=== PATIENT | female | born 1980 | race Caucasian/White ===

== ENCOUNTER 2017-09-02 08:00 | Outpatient (CLI) | payer BC | END 2017-09-02 08:01 | disposition home or self-care (01) | LOC: LAB.R 08:00 | PROVIDERS: ATTEND Obstetrics & Gynecology | DX: Z11.3 Encounter for screening for infections with a predominantly sexual mode of transmission (principal) | CPT/HCPCS: 87491; 87591 ==

== ENCOUNTER 2021-01-12 17:37 | Emergency (ER) | payer BC ==
[2021-01-12] MEDS ORDERED: BUFFERED LIDOCAINE 10 ML SYRINGE SUBQ STA (18:05)
--- NOTE | 2021-01-12 18:28 | ED Physician Documentation ---
History of Present Illness - Stated complaint Stated Complaint: FEMALE - Chief complaint Chief Complaint: General - Additonal information Additional information: 40-year-old female presents to the emergency department for 3 days of right l abial swelling. She has a history of previous Bartholin gland cyst/infection and this is similar to others. She typically gets them when she has a Crohn's flare and she developed a Crohn's flare about a week ago. She is currently on prednisone as well as mesalamine. She reports that the flare is improving but now she has developed the cyst. It is becoming increasingly larger and more painful to sit. No fevers. Currently on her menstrual cycle denies possibility of . Review of Systems Constitutional: reports: Reviewed and negative Eyes: reports: Reviewed and negative Ears: reports: Reviewed and negative Nose: reports: Reviewed and negative Throat: reports: Reviewed and negative Cardiac: reports: Reviewed and negative Respiratory: reports: Reviewed and negative GI: reports: Abdominal Pain, Bloody / black stool : reports: Other (Right Bartholin gland cyst). denies: Dysuria, Frequency Skin: reports: Reviewed and negative Musculoskeletal: reports: Reviewed and negative Neurologic: reports: Generalized weakness PD PAST MEDICAL HISTORY - Present Medications Home Medications: Ambulatory Orders Medication Instructions Recorded Confirmed HYDROcod/ACETAM 5/325 [[place] 5/325] 1 - 2 tablet PO Q6H PRN #10 tablet 01/12/21 Sulfamethox/Trimeth 800/160 1 each PO BID #14 tablet 01/12/21 [Bactrim Ds 800/160] - Allergies Allergies/Adverse Reactions: Allergies Allergy/AdvReac Type Severity Reaction Status Date / Time No Known Drug Allergies Allergy Verified 01/12/21 17:47 - Social History Smoking Status: Never smoker PD ED PE EXPANDED - General General: Alert, No acute distress - Cardiac Cardiac: Regular Rate, Radial strong equal, Pedal strong equal, Cap refill < 2 sec. No: Murmur Present - Respiratory Respiratory: Clear to ausultation jaswinder. No: Distress, Labored - Female Female : Other (2.5 x 4 cm right Bartholin gland cyst palpable fluctuance without drainage no erythema.) Results - Vitals Vitals: Vital Signs - 24 hr 01/12/21 17:40 Temperature 36.2 C L Heart Rate 63 Respiratory 14 Rate Blood Pressure 141/78 H O2 Saturation 100 Oxygen O2 Source Room air Procedures - Abscess I&D (location) right labia majora Preparation: Chlorhexadine Incision: Incised with scalpel, Purulent drainage, Loculations broken, Other (through and through tubin placed) Other: Pt tolerated well, Antibiotic prescribed PD MEDICAL DECISION MAKING - ED course Complexity details: re-evaluated patient, considered differential, d/w patient ED course: 40-year-old female presents emergency department with 3 days of right labial swelling consistent with a Bartholin gland abscess. She has had these 3 times in the past and always with her Crohn's flares. She is currently on prednisone and mesalamine to treat that and reports that that flare is improving. The abscess was incised and drained at the bedside with a large amount of purulent fluid draining. A through and through catheter was placed. Patient will be started on a 7-day course of Bactrim. Advised to do sitz bath's twice daily and to floss the tubing for at least 3 to 4 days. She will return to the emergency department her primary care doctor or an urgent care to have the tubing removed. Emergent return precautions were discussed for worsening infection. Departure - Departure Disposition: 01 Home, Self Care Clinical Impression: Bartholin's gland abscess Condition: Stable Record reviewed to determine appropriate education?: Yes Prescriptions: Sulfamethox/Trimeth 800/160 [Bactrim Ds 800/160] 1 each PO BID #14 tablet HYDROcod/ACETAM 5/325 [[place] 5/325] 1 - 2 tablet PO Q6H PRN #10 tablet PRN Reason: Pain Comments: Meg Green glad that you are feeling better. We were able to drain your Bartho michael abscess. The tubing that was placed should be flossed 2-3 times daily. You can shower normally but I also encourage you to sit in a warm sitz bath once or twice daily. Lets have you fill the prescription for the Bactrim and begin taking twice daily for the next 7 days. I would like this to being removed in about 3 days time. This can be done at any urgent care the emergency department or through your primary care office. If you feel that the abscess is worsening or not improving despite the drainage here in the ER please return to the emergency department. I have also prescribed a limited amount of hydrocodone or [place] for pain control. Use this very sparingly it will cause constipation and make you unsafe to drive
[2021-01-12] MEDS ORDERED: SULFAMETH/TRIMETH DS 800/160 MG TABLET PO STA (18:30)
[2021-01-12 18:45] VITALS: BP 124/83
== END 2021-01-12 18:46 | disposition home or self-care (01) ==
LOC: ED 17:37
DX: N75.1 Abscess of Bartholin's gland (principal)
CPT/HCPCS: 56420; 99282; 99283; A9270

== ENCOUNTER 2022-03-20 11:17 | Emergency (ER) | payer BC, OTHER ==
[2022-03-20 11:31] VITALS: BP 111/61
[2022-03-20] MEDS ORDERED: lidocaine 1% 20 ML MDV SUBQ ONE (11:59)
--- NOTE | 2022-03-20 11:59 | ED Physician Documentation ---
History of Present Illness - Stated complaint Stated Complaint: FEMALE - Chief complaint Chief Complaint: Wound - Additonal information Additional information: 41-year-old female presents emergency department for concern of a return of her Bartholin gland cyst/abscess infection. She is seen by me for this in December 2020. At that time the cyst was drained and she did have through and through tubing placed. It resolved after the tubing was removed she did require short course of antibiotics. Patient is scheduled to see an OB in follow-up next week. No fevers. This gland and swelling began on her right side again about a week ago. No fevers Review of Systems Constitutional: reports: Reviewed and negative Cardiac: reports: Reviewed and negative Respiratory: reports: Reviewed and negative GI: reports: Reviewed and negative : reports: Other (Right labial swelling) Skin: reports: Reviewed and negative Musculoskeletal: reports: Reviewed and negative PD PAST MEDICAL HISTORY - Present Medications Home Medications: Ambulatory Orders Medication Instructions Recorded Confirmed Sulfamethox/Trimeth 800/160 1 each PO BID #14 tablet 03/20/22 [Bactrim Ds 800/160] oxyCODONE [Roxicodone] 5 mg PO TID PRN #10 tablet 03/20/22 - Allergies Allergies/Adverse Reactions: Allergies Allergy/AdvReac Type Severity Reaction Status Date / Time No Known Drug Allergies Allergy Verified 03/20/22 11:29 - Social History Smoking Status: Never smoker Results - Vitals Vitals: Vital Signs - 24 hr 03/20/22 11:29 Temperature 36.8 C Heart Rate 65 Respiratory 18 Rate Blood Pressure 111/61 O2 Saturation 100 Oxygen O2 Source Room air Procedures - Abscess I&D (location) right bartholin gland abscess Preparation: Betadine Incision: Incised with scalpel, Purulent drainage, Loculations broken, Irrigated, Packed (Through and through tubing) Other: Pt tolerated well, Dressing applied, Antibiotic prescribed PD MEDICAL DECISION MAKING - ED course Complexity details: considered differential, d/w patient ED course: 41-year-old female return to the emergency department for evaluation of a right Bartholin gland abscess. She had similar in December 2020 in the same area. I was able to adequately drain the abscess and through and through tubing was placed into the right labia. She will be started on Bactrim and she does have follow- up scheduled next week with OB. I have advised sitz bath's Tylenol ibuprofen for pain and a very limited amount of oxycodone for severe discomfort. Emergent return precautions otherwise discussed. I am prescribing a short course of short-acting opioid pain medication for this patient. I have reviewed the patients IDENTITY MANAGEMENT CONSULTANT and no concerning findings were noted. I have discussed that the opioids are for short term therapy only, and will not be refilled from the ED. Departure - Departure Disposition: 01 Home, Self Care Clinical Impression: Bartholin's gland abscess Condition: Stable Record reviewed to determine appropriate education?: Yes Prescriptions: Sulfamethox/Trimeth 800/160 [Bactrim Ds 800/160] 1 each PO BID #14 tablet oxyCODONE [Roxicodone] 5 mg PO TID PRN #10 tablet PRN Reason: Pain Comments: Meg dow did have a return of your right Bartholin gland abscess. The incision today is a little larger in order to accommodate the scar tissue. However we did again place that through and through tubing. It should be removed in 7 to 10 days. I would like you to do sitz bath's once or twice daily. Please fill the prescr iption for the antibiotics. In general I want you to take Tylenol and ibuprofen for discomfort but for severe pain I have prescribed a limited amount of oxycodone. Please return to the ER for worsening symptoms, fevers or uncontrolled pain. I am prescribing a short course of narcotic pain medication for you. These are potentially dangerous and addictive medications that should be used carefully. These medications may constipate you. Take an sren-aag-udqliuj stool softener (docusate) twice daily with plenty of water while taking these medications. If you go 24 hours without a bowel movement, take gfhy-svw-oookwiw miralax, per package instructions. Do not drink or drive while taking these medications. If you received narcotic or sedating medications while in the emergency department, do not drive for 24 hours. Store this medication in a safe, secure place and out of reach of children. It is a violation of federal law to give or sell this medication to another person or to use in a manner other than prescribed. The ED will not refill narcotic prescriptions, including prescriptions lost or stolen. To dispose of unwanted medications: 1. [facility] at [address] in [place] has a medication drop box. They accept prescription medications (in pill form) Saturday through Saturday 9:00 a.m. to 5:00 p.m. 2. The [facility] accepts prescription medications (in pill form only) for disposal year round. Call for more information. 3. Contact the [facility] for the next [facility] sponsored prescription drug collection event. , [phone], or x7310; Note that many narcotic pain relievers also contain Tylenol/acetaminophen. Please ensure that your total dose of acetaminophen from all sources does not exceed 3 g (3000 mg) per day.
== END 2022-03-20 13:26 | disposition home or self-care (01) ==
LOC: ED 11:17
DX: N75.0 Cyst of Bartholin's gland (principal)
CPT/HCPCS: 56420

== ENCOUNTER 2022-03-21 10:24 | Emergency (ER) | payer OTHER ==
--- NOTE | 2022-03-21 13:09 | ED Physician Documentation ---
History of Present Illness - Stated complaint Stated Complaint: CYST CHECK - Chief complaint Chief Complaint: Wound - History obtained from History obtained from: Patient - Additonal information Additional information: Patient returns to the emergency department for chief complaint of "it feels like there is another abscess". Patient states that she was seen yesterday for a Bartholin gland abscess I&D and that she feels like the pain is worse and that there is still a fullness in the area. Patient is tried sitz bath's and she has been taking the antibiotics that she was prescribed. She also has been taking pain medication. She states the oxycodone is not helping and that when she felt down there, and she feels as though there is a "ball" in her right labia. She has not had any drainage. No other complaints at this time. Review of Systems Ten Systems: 10 systems reviewed and negative Constitutional: reports: Reviewed and negative Eyes: reports: Reviewed and negative Ears: reports: Reviewed and negative Nose: reports: Reviewed and negative Throat: reports: Reviewed and negative Cardiac: reports: Reviewed and negative Respiratory: reports: Reviewed and negative GI: reports: Reviewed and negative : reports: Other (Labial mass) Skin: reports: Reviewed and negative Musculoskeletal: reports: Reviewed and negative Neurologic: reports: Reviewed and negative Psychiatric: reports: Reviewed and negative Endocrine: reports: Reviewed and negative Immunocompromised: reports: Reviewed and negative PD PAST MEDICAL HISTORY - Present Medications Home Medications: Ambulatory Orders Medication Instructions Recorded Confirmed Sulfamethox/Trimeth 800/160 1 each PO BID #14 tablet 03/20/22 03/21/22 [Bactrim Ds 800/160] oxyCODONE [Roxicodone] 5 mg PO TID PRN #10 tablet 03/20/22 03/21/22 Oxycodone HCl/Acetaminophen 1 - 2 each PO Q6H PRN #14 tablet 03/21/22 [Percocet 5-325 mg Tablet] - Allergies Allergies/Adverse Reactions: Allergies Allergy/AdvReac Type Severity Reaction Status Date / Time No Known Drug Allergies Allergy Verified 03/21/22 10:41 - Social History Smoking Status: Never smoker PD ED PE NORMAL - Vitals Vital signs reviewed: Yes - General General: Alert and oriented X 3, No acute distress, Well developed/nourished - HEENT HEENT: Atraumatic, PERRL, EOMI, Moist mucous membranes - Neck Neck: Supple, no meningeal sign - Respiratory Respiratory: No respiratory distress - Female Female : Other (Palpable fluctuant mass patient's right labia. Fresh I&D site from yesterday is noted with a through and through catheter tied in place. Incision site from yesterday is sealed and nondraining.) - Derm Derm: Warm and dry - Extremities Extremities: No deformity - Neuro Neuro: Alert and oriented X 3 - Psych Psych: Normal mood, Normal affect Results - Vitals Vitals: Vital Signs - 24 hr 03/21/22 03/21/22 10:42 13:18 Temperature 36.1 C L Heart Rate 64 55 L Respiratory 18 18 Rate Blood Pressure 117/66 109/62 O2 Saturation 99 100 Oxygen O2 Source Room air Procedures - Abscess I&D (location) Right Bartholin gland abscess Preparation: Lidocaine 1% Incision: Incised with scalpel, Purulent drainage (5 cc, foul-smelling), Irrigated, Packed (Word catheter placed) Other: Pt tolerated well PD MEDICAL DECISION MAKING - ED course Complexity details: considered differential, d/w patient, d/w family ED course: The patient on examination clearly still had an abscess, and I did I&D this, as above. I chose a more medial site, as this seemed to be the apex of the remaining cavity. Approximately 5 cc of foul-smelling, purulent material did come shooting out upon incision. Area was thoroughly irrigated until clear effluent. I have discussed with the patient home management of the symptoms that have prescribed a little more pain medication for her. She is already on antibiotics and can continue these at home. We have discussed that the Word catheter will follow so. We have discussed the usual indications for return. Departure - Departure Disposition: 01 Home, Self Care Clinical Impression: Bartholin's gland abscess Condition: Stable Instructions: ED Bartholins Cyst IandD Prescriptions: Oxycodone HCl/Acetaminophen [Percocet 5-325 mg Tablet] 1 - 2 each PO Q6H PRN #14 tablet PRN Reason: pain Comments: Please continue your antibiotics. Your extra pain medication has been electronically transmitted to [facility]. You may pick this up later today. Discharge Date/Time: 03/21/22 13:38
[2022-03-21 13:18] VITALS: BP 109/62
== END 2022-03-21 13:38 | disposition home or self-care (01) ==
LOC: ED 10:24
DX: N75.1 Abscess of Bartholin's gland (principal)
CPT/HCPCS: 56420; 99282

== ENCOUNTER 2023-05-18 15:43 | Inpatient (IN) | payer OTHER ==
[~2023-05-18 15:43] MED LIST: LACTATED RINGERS 1,000 ML IV ONE
[2023-05-18 16:55] LABS: BASOPHILS # (AUTO) 0.1 10^3/uL (0.0-0.1); BASOPHILS % (AUTO) 0.5 %; EOSINOPHILS % (AUTO) 0.2 %; HCT - HEMATOCRIT 39.3 % (37.0-47.0); HGB - HEMOGLOBIN 13.1 g/dL (12.0-16.0); LYMPHOCYTES # (AUTO) 0.8 10^3/uL (1.5-3.5); LYMPHOCYTES % (AUTO) 4.7 %; MEAN CORPUSCULAR HEMOGLOBIN 30.5 pg (27.0-31.0); MEAN CORPUSCULAR HGB CONC 33.3 g/dL (32.0-36.0); MEAN CORPUSCULAR VOLUME 91.4 fL (81.0-99.0); MEAN PLATELET VOLUME 9.2 fL (7.9-10.8); MONOCYTES # (AUTO) 0.9 10^3/uL (0.0-1.0); NEUTROPHILS # (AUTO) 15.6 10^3/uL (1.5-6.6); NEUTROPHILS % (AUTO) 89.1 %; PLT - PLATELET COUNT 288 10^3/uL (130-450); RED CELL DISTRIBUTION WIDTH 12.4 % (12.0-15.0); WHITE BLOOD COUNT 17.6 x10^3/uL (4.8-10.8)
[2023-05-18 17:06] LABS: ALBUMIN 4.1 g/dL (3.2-5.5); ALBUMIN/GLOBULIN RATIO 1.4 (1.0-2.2); BILIRUBIN,TOTAL 0.4 mg/dL (0.2-1.0); CALCIUM 9.3 mg/dL (8.5-10.3); CREATININE 0.8 mg/dL (0.6-1.3); POTASSIUM 4.2 mmol/L (3.5-4.5)
[2023-05-18] MEDS ORDERED: HYDROmorphone 1 MG/ML CARPUJECT IVP STA ×2 (17:23→21:18)
[2023-05-18] MEDS ORDERED: ONDANSETRON 4 MG/2 ML VIAL IVP STA (17:23)
[2023-05-18] MEDS ORDERED: SODIUM CHLORIDE 0.9% 1,000 ML IV STA (17:23)
--- NOTE | 2023-05-18 17:25 | ED Physician Documentation ---
History of Present Illness - Stated complaint Stated Complaint: RT ABD PX - Chief complaint Chief Complaint: Abd Pain - Additonal information Additional information: 42-year-old female presents emergency department for evaluation of acute onset right lower quadrant abdominal pain. [facility] working [facility] [employer] when she developed the sudden pain. She immediately went home vomiting [address] there[address] At home she took an oxycodone and then got a ride to the ER. The pain has resolved somewhat with the oxycodone. Reports she is currently on her menstrual cycle. No history of similar. No history of ovarian cyst or torsion. pmh hx most significant for Crohn's disorder. Not currently medicated Review of Systems Constitutional: reports: Reviewed and negative GI: reports: Abdominal Pain, Nausea, Vomiting. denies: Constipation, Diarrhea : reports: Reviewed and negative Skin: reports: Reviewed and negative Musculoskeletal: reports: Reviewed and negative PD PAST MEDICAL HISTORY - Past Medical History Cardiovascular: None Respiratory: None Neuro: None Endocrine/Autoimmune: None GI: Ulcerative colitis OPERATIONS/DISPATCH: None : None HEENT: None Psych: None Musculoskeletal: None Derm: None - Present Medications Home Medications: Ambulatory Orders Medication Instructions Recorded Confirmed oxyCODONE [Roxicodone] 5 mg PO ONCE 05/18/23 - Allergies Allergies/Adverse Reactions: Allergies Allergy/AdvReac Type Severity Reaction Status Date / Time No Known Drug Allergies Allergy Verified 05/18/23 15:54 - Social History Does the pt smoke?: No Smoking Status: Never smoker Does the pt drink ETOH?: No Does the pt have substance abuse?: No - Immunizations Immunizations are current?: Yes PD ED PE NORMAL - General General: Alert and oriented X 3, No acute distress, Well developed/nourished - HEENT HEENT: Atraumatic - Neck Neck: Supple, no meningeal sign - Cardiac Cardiac: RRR, No murmur - Respiratory Respiratory: No respiratory distress - Abdomen Abdomen: Normal bowel sounds, Soft, Non tender (Exquisite focal tenderness in the right lower quadrant. No flank or CVA tenderness noted.) - Back Back: No CVA TTP - Derm Derm: Warm and dry - Extremities Extremities: No deformity - Neuro Neuro: Alert and oriented X 3, desulphuring operator 2-12 intact Eye Opening: Spontaneous Motor: Obeys Commands Verbal: Oriented GCS Score: 15 Results - Vitals Vitals: Vital Signs - 24 hr 05/18/23 05/18/23 05/18/23 15:52 18:02 21:11 Temperature 37 C Heart Rate 65 62 64 Respiratory 16 15 15 Rate Blood Pressure 113/58 L 118/59 L 141/72 H O2 Saturation 100 100 100 Oxygen O2 Source Room air - Labs Labs: Laboratory Tests 05/18/23 05/18/23 05/18/23 16:49 16:49 16:49 WBC 17.6 H RBC 4.30 Hgb 13.1 Hct 39.3 MCV 91.4 MCH 30.5 MCHC 33.3 RDW 12.4 Plt Count 288 MPV 9.2 Neut # (Auto) 15.6 H Lymph # (Auto) 0.8 L [place] # (Auto) 0.9 Eos # (Auto) 0.0 Baso # (Auto) 0.1 Absolute Nucleated RBC 0.00 Nucleated RBC % 0.0 Sodium 136 Potassium 4.2 Chloride 106 Carbon Dioxide 27 Anion Gap 3.0 L BUN 13 Creatinine 0.8 Estimated GFR (MDRD) 78 L Glucose 115 H Calcium 9.3 Total Bilirubin 0.4 AST 13 ALT 12 Alkaline Phosphatase 75 Total Protein 7.0 Albumin 4.1 Globulin 2.9 Albumin/Globulin Ratio 1.4 Lipase 16 Serum HCG, Qual NEGATIVE Urine Color Urine Clarity Urine pH Ur Specific [place] Urine Protein Urine Glucose (UA) Urine Ketones Urine Occult Blood Urine Nitrite Urine Bilirubin Urine Urobilinogen Ur Leukocyte Esterase Urine RBC Urine WBC Ur Squamous Epith Cells Urine Bacteria Ur Microscopic Review Urine Culture Comments 05/18/23 19:22 WBC RBC Hgb Hct MCV MCH MCHC RDW Plt Count MPV Neut # (Auto) Lymph # (Auto) [place] # (Auto) Eos # (Auto) Baso # (Auto) Absolute Nucleated RBC Nucleated RBC % Sodium Potassium Chloride Carbon Dioxide Anion Gap BUN Creatinine Estimated GFR (MDRD) Glucose Calcium Total Bilirubin AST ALT Alkaline Phosphatase Total Protein Albumin Globulin Albumin/Globulin Ratio Lipase Serum HCG, Qual Urine Color YELLOW Urine Clarity CLEAR Urine pH 5.0 Ur Specific [place] 1.015 Urine Protein NEGATIVE Urine Glucose (UA) NEGATIVE Urine Ketones NEGATIVE Urine Occult Blood SMALL H Urine Nitrite NEGATIVE Urine Bilirubin NEGATIVE Urine Urobilinogen 0.2 (NORMAL) Ur Leukocyte Esterase NEGATIVE Urine RBC 0-5 Urine WBC 0-3 Ur Squamous Epith Cells RARE Squamous Urine Bacteria None Seen Ur Microscopic Review INDICATED Urine Culture Comments NOT INDICATED - Rads (name of study) CT abd w Relevant Findings:: Final report received (Cystic-appearing right adnexal mass measuring 8.6 cm. Few indeterminate liver lesions present, too small to characterize. Nonemergent MRI of the liver without contrast could be helpful.) pelvic US Relevant Findings:: Final report received (complex foci of echogenicity within the right ovary/adnexal region suggestive of complex cyst) PD Medical Decision Making - ED course Complexity details: reviewed results, re-evaluated patient, considered differential, d/w patient ED course: 42-year-old female with no pertinent past surgical history presents the emergency department for the development of acute nonradiating right lower quadrant abdominal pain. It began suddenly and was associated with violent vomiting. No history of similar. Denies urinary symptoms. Patient is currently on her menstrual cycle. On presentation to the emergency department she was alert and well-appearing. She was afebrile without hypotension or tachycardia. No hypoxia on room air. Abdominal exam revealed very tender right lower quadrant of the abdomen with some mild rebound. I did obtain CBC and electrolytes as well as urinalysis. She does have a white count of 17,000. No anemia. Electrolytes without acute worrisome derangement. She is not . I suspect the leukocytosis to be stress marginalization. I initially gave the patient a liter of IV fluids, Zofran for nausea and Dilaudid IV. On reevaluation her pain is markedly better though she remains tender with deeper palpation. Subsequently a CT of the abdomen was ordered on presentation to evaluate for acute appendixy versus renal colic, vs ovarian mass. Unfortunately it showed a large cystic-appearing right adnexal mass measuring 8.6 cm. Given this finding I immediately ordered a pelvic ultrasound to rule out torsion and spoke on the phone with Dr. Cazares PUTTY GLAZER on-call. She promptly evaluated the patient at the bedside and personally reviewed the ultrasound images. at this time, she tentatively plans to take the pt to OR for further evaluation fo the right adnexal mass, pending the formal radiology read, though the technologist indicates that this is a complex right adnex mass/cystic lesion. No obvious torsion, flow was seen. However given the patient's persistent pain, there is concern for intermittent torsion. Dr. Cazares plans to take the pt to OR for evaluation of adnexal mass and possible intermittent torsion Departure - Departure Disposition: ED Transfer to [facility] Clinical Impression: Adnexal mass, RLQ abdominal pain Condition: Stable Record reviewed to determine appropriate education?: Yes Forms: PCP List
[2023-05-18 17:56] LABS: HCG,QUALITATIVE BLOOD NEGATIVE
[2023-05-18] MEDS ORDERED: iohexoL-300 100 ML VIAL ONE (18:44)
[2023-05-18] MEDS ORDERED: iohexoL-300 100 ML VIAL IVP ONE (19:03)
--- NOTE | 2023-05-18 19:19 | CT Report ---
PROCEDURE: ABDOMEN/PELVIS W INDICATIONS: RLQ abd pain CONTRAST: 100ml Omnipaque 300 TECHNIQUE: After the administration of intravenous contrast, 5 mm thick sections acquired from the diaphragms to the symphysis. 5 mm thick coronal and sagittal reformats were acquired. For radiation dose reducti on, the following was used: automated exposure control, adjustment of mA and/or kV according to jaleesa ent size. COMPARISON: None FINDINGS: Visualized lung bases: No pleural effusion. Liver and biliary tree: Few small hepatic hypodensities present, too small to characterize/indetermin ate. For example at the posterior right lobe of the liver (/). No biliary ductal dilation demonstr ated. Gallbladder: No radiopaque cholelithiasis. Spleen: Unremarkable. Pancreas: Unremarkable. Adrenal glands: Unremarkable. Kidneys and ureters: No hydronephrosis. Gastrointestinal tract: No bowel obstruction. No evidence of acute appendicitis. Peritoneal cavity: No free air or free fluid. Bladder: Unremarkable. Pelvic organs: Heterogeneous predominantly cystic appearing mass present at the right adnexa, approxi mately 8.6 x 6.0 cm measured in the axial plane. The uterus is heterogeneous in attenuation, nonspeci fic. Vasculature: No abdominal aortic aneurysm. Lymph nodes: No highly suspicious lymph nodes visualized. Musculoskeletal: Degenerative change of the spine. IMPRESSION: 1. Heterogeneous primarily cystic appearing right adnexal mass, 8.6 cm. Presence of adnexal mass plac es the patient at increased risk for ovarian/adnexal torsion. 2. Heterogeneous enhancement of the uterus, nonspecific. Correlation with recent / status may be helpful. 3. Gynecology consultation may be helpful to direct further management including additional imaging, if desired. Uterus and ovaries are not well evaluated by CT. 4. Few indeterminate liver lesions present, too small to characterize. Attention on follow-up is tay mmended. Nonemergent MRI of the liver without with contrast might be helpful for evaluation if clinic ally indicated. Reviewed by: Javier Osborn MD on 05/18/2023 7:18 PM PDT Approved by: Javier Osborn MD on 05/18/2023 7:18 PM PDT Station ID: [id number]
[2023-05-18 19:36] LABS: BILIRUBIN,URINE NEGATIVE (NEGATIVE); GLUCOSE, URINE (UA) NEGATIVE (NEGATIVE); KETONES,URINE (UA) NEGATIVE (NEGATIVE); LEUKOCYTE ESTERASE, URINE NEGATIVE (NEGATIVE); NITRITE,URINE NEGATIVE (NEGATIVE); OCCULT BLOOD,URINE SMALL (NEGATIVE); PROTEIN,URINE NEGATIVE (NEGATIVE); UROBILINOGEN,URINE 0.2 (NORMAL) E.U./dL (NORMAL)
[2023-05-18 19:37] LABS: CLARITY,URINE CLEAR (CLEAR)
[2023-05-18 19:45] LABS: BACTERIA,URINE None Seen /HPF (None Seen); RBC,URINE 0-5 /HPF (0-5); SQUAMOUS EPITHELIAL CELL,UR RARE Squamous (<= Few); WBC,URINE 0-3 /HPF (0-5)
--- NOTE | 2023-05-18 21:22 | HISTORY & PHYSICAL EXAMINATION ---
Chief Complaint - Chief Complaint Chief Complaint: Acute onset abdominal pain History of Present Illness - History of Present Illness HPI Comment/Other: Patient is a 42-year-old who presented to the emergency department with acute onset of right lower quadrant pain. [place] [employer] and stated that pain started very suddenly. She called her who then drove her to the emergency department. Pain has been consistent since that time. She has required pain medication and redosing of pain medication when it wears off. She had several episodes of vomiting with the onset of pain. Patient denies fevers and chills. She denies vaginal discharge. Patient has a history of irregular menstrual cycles and started her menstrual cycle 2 days ago. History - Past Medical History Cardiovascular: reports: None Respiratory: reports: None Neuro: reports: None Endocrine/Autoimmune: reports: None GI: reports: Ulcerative colitis (patient takes asacol but not consistently) [employer]: reports: None (Ob: x 2, uncomplicated Patient Access: Irregular menstrual cycles, started her period 05/16, no history of ovarian cysts or infections) : reports: None HEENT: reports: None Psych: reports: None Musculoskeletal: reports: None Derm: reports: None MRSA Hx?: No - Family & Social History Living arrangement: At home Living Situation: With spouse/s.o. - Substance History Use: Uses substance without health or social issues: NONE Meds/Allgy - Home Medications Home Medications: Ambulatory Orders Medication Instructions Recorded Confirmed oxyCODONE [Roxicodone] 5 mg PO ONCE 05/18/23 - Allergies Allergies/Adverse Reactions: Allergies Allergy/AdvReac Type Severity Reaction Status Date / Time No Known Drug Allergies Allergy Verified 05/18/23 15:54 Review of Systems - Constitutional Constitutional: denies: Fever, Chills - Cardiovascular Cariovascular: denies: Chest pain - Gastrointestinal Gastrointestinal: reports: Abdominal pain (patient with acute onset of lower pelvic/abdominal pain) - All Other Systems All Other Systems: reports: Reviewed and negative Exam - Vital Signs Reviewed Vital Signs: Yes Vital Signs: Vital Signs x48h Temp Pulse Resp BP Pulse Ox 05/18/23 21:11 64 15 141/72 H 100 05/18/23 18:02 62 15 118/59 L 100 05/18/23 15:52 98.6 F 65 16 113/58 L 100 - Physical Exam General Appearance: positive: Moderate distress (Patient is tearful and appears uncomfortable) Respiratory: positive: Breath sounds nml Cardiovascular: positive: Regular rate & rhythm Abdomen: positive: Other (tenderness to palpation) Neurologic/Psychiatric: positive: Oriented x3, Mood/affect nml Comments/Other: Pelvic exam: +bleeding (pt on her period), significant pain with bimanual examination. Mass palpated posterior cul-de-sac. Conclusion/Plan - Problem List (1) Adnexal mass Conclusion/Plan: Large right adnexal mass with concern for ovarian torsion. Patient with significant pelvic pain with palpable mass on bimanual exam that is very painful. I discussed concern for ovarian torsion. Management options discussed with patient with recommendation for surgical management secondary to concern for ovarian torsion. Plan is for initial laparoscopic evaluation with high likelihood of conversion to laparotomy due to size of mass. The risks, benefits and alternatives to laparoscopy were discussed with the patient in detail. Those risks specifically addressed were infection, most co mmonly occurring at the level of the skin incision, bleeding which could result in additional surgical procedures, or a blood transfusion and injury to other organs like her bowel and bladder. She is also aware that there is a risk of a need for oophorectomy but the goal is to leave her ovary and only remove the cyst. There is also a risk of salpingectomy as well. The patient also understands that this procedure would require general anesthesia and be associated with risks with general anesthesia. She understands she should expect an approximately 2-week recovery from the procedure afterwards. The patient understands this is an outpatient procedure. All of the patient's questions were answered . - Lab Results Fish Bones: 05/18/23 16:49 05/18/23 16:49 - Other Other Results/Comments: 8.6 x 6 cm right adnexal mass on CT scan Ultrasound results pending
[2023-05-18] MEDS ORDERED: ceFAZolin 2 GM in SODIUM CHLORIDE 0.9% 100ML 100 ML IV STA (21:36)
--- NOTE | 2023-05-18 21:36 | Ultrasound Report ---
PROCEDURE: Pelvic w/Transvag+Doppler Comp INDICATIONS: pelvic pain, R; TECHNIQUE: Real-time scanning was performed of the pelvic organs, with image documentation. Additional endovagi nal scanning was necessary due to incomplete visualization of the adnexal and endometrial structures by transabdominal scanning. Doppler interrogation was performed of the ovaries bilaterally. COMPARISON: None. FINDINGS: Uterus: Uterus is anteverted and enlarged in size at 10.1 x 6.9 x 7.5 cm. The myometrium is homogen eous. The endometrium measures 23 mm in combined thickness. Within the mid anterior submucosal chani on there is a 29 x 26 x 28 mm focus of heterogeneous echogenicity within the uterus. A similar appear ing focus in the right fundal region is present measuring 67 x 47 x 68 mm. Ovaries: The right ovary measures 5.7 x 7.4 x 0.1 cm, with a calculated ovarian volume of 302 cc. T he left ovary measures 3.5 x 1.7 x 2.7 cm, with a calculated ovarian volume of 8.2 cc. Appropriate b lood flow to the ovaries with Doppler interrogation. Complex foci are present within the right ovar y measuring 52 x 51 x 56 mm and 47 x 26 x 28 mm. Simple cyst is noted on the left measuring 15 x 12 x 15 mm. Other: No pathologic free abdominal or pelvic fluid. IMPRESSION: Complex foci of echogenicity within the right ovary/adnexal region suggestive of complex cyst. Ovaria n flow is identified making torsion less likely. Interval follow-up is recommended to document resolu tion. Uterine fibroids. Reviewed by: Tamie Fitzgerald MD on 05/18/2023 9:35 PM PDT Approved by: Tamie Fitzgerald MD on 05/18/2023 9:35 PM PDT Station ID: [id number]
[2023-05-18] MEDS ORDERED: ceFAZolin 2 GM VIAL ONE (21:52)
[2023-05-18] MEDS ORDERED: fentaNYL 100 MCG/2 ML VIAL IVP PRN (22:30)
[2023-05-18] MEDS ORDERED: ONDANSETRON 4 MG/2 ML VIAL IVP PRN (22:30)
[2023-05-18] MEDS ORDERED: ATROPINE ABBOJECT 1 MG/10 ML SYRINGE IVP PRN (22:30)
[2023-05-18] MEDS ORDERED: ePHEDrine 50 MG/ML VIAL IVP PRN (22:30)
[2023-05-18] MEDS ORDERED: NALOXONE 0.4 MG/ML VIAL IVP PRN (22:30)
--- NOTE | 2023-05-18 22:30 | ANESTHESIA ---
Pre-Anesthesia VS, & Labs - Diagnosis R ovarian torsion - Procedure R lap salpingectomy Vital Signs: Temp Pulse Resp BP Pulse Ox O2 Flow Rate 36.9 C 53 L 16 107/63 100 05/18/23 22:05 05/18/23 22:05 05/18/23 22:05 05/18/23 22:05 05/18/23 22:05 Height: 5 ft 7 in Weight (kg): 99.79 kg Body Mass Index: 34.4 BMI Classification: Obese - NPO >8 hours - Is Patient ?: No - Lab Results Current Lab Results: Laboratory Tests 05/18/23 16:49: Serum HCG, Qual NEGATIVE 05/18/23 16:49: Sodium 136, Potassium 4.2, Chloride 106, Carbon Dioxide 27, Anion Gap 3.0 L, BUN 13, Creatinine 0.8, Estimated GFR (MDRD) 78 L, Glucose 115 H, Calcium 9.3, Total Bilirubin 0.4, AST 13, ALT 12, Alkaline Phosphatase 75, Total Protein 7.0, Albumin 4.1, Globulin 2.9, Albumin/Globulin Ratio 1.4, Lipase 16 05/18/23 16:49: WBC 17.6 H, RBC 4.30, Hgb 13.1, Hct 39.3, MCV 91.4, MCH 30.5, MCHC 33.3, RDW 12.4, Plt Count 288, MPV 9.2, Neut # (Auto) 15.6 H, Lymph # (Auto) 0.8 L, [place] # (Auto) 0.9, Eos # (Auto) 0.0, Baso # (Auto) 0.1, Absolute Nucleated RBC 0.00, Nucleated RBC % 0.0 Lab results reviewed: Yes Fish Bones: 05/18/23 16:49 05/18/23 16:49 Home Medications and Allergies Home Medications: Ambulatory Orders oxyCODONE [Roxicodone] 5 mg PO ONCE 05/18/23 oxyCODONE [Roxicodone] 5 mg PO ONCE 05/18/23 Allergies/Adverse Reactions: Allergies Allergy/AdvReac Type Severity Reaction Status Date / Time No Known Drug Allergies Allergy Verified 05/18/23 15:54 Anes History & Medical History - Anesthetic History Anesthesia Complications: reports: No previous complications Family history of Anesthesia Complications: Denies Family history of Malignant Hyperthermia: Denies - Medical History Cardiovascular: reports: None Pulmonary: reports: None Gastrointestinal: reports: Ulcerative colitis Urinary: reports: None Neuro: reports: None Musculoskeletal: reports: None Endocrine/Autoimmune: reports: None Blood Disorders: reports: None Skin: reports: None Smoking Status: Never smoker Psychosocial: reports: No issues indicated - Surgical History Gynecologic: reports: Other Exam General: Alert, Oriented x3, Cooperative Dental: WNL Mouth Openin Fingerbreadth Neck Mobility: Normal Mallampati classification: II Thyromental Distance: 4-6 cm Respiratory: Lungs clear Cardiovascular: Regular rate Plan Anesthesia Type: General Consent for Procedure(s) Verified and Reviewed: Yes Code Status: Attempt Resuscitation ASA classification: 2-Mild systemic disease Is this case an emergency?: Yes
[2023-05-18] MEDS ORDERED: DEXAMETHASONE 4 MG/ML VIAL ONE (22:54)
[2023-05-18] MEDS ORDERED: KETOROLAC 30 MG/ML VIAL ONE (22:54)
[2023-05-18] MEDS ORDERED: SUCCINYLCHOLINE 200 MG/10 ML VIAL ONE (22:54)
[2023-05-18] MEDS ORDERED: PHENYLEPHRINE 10 MG/ML VIAL ONE (22:54)
[2023-05-18] MEDS ORDERED: PROPOFOL 500 MG/50 ML 500 MG/50 ML VIAL ONE (22:54)
[2023-05-18] MEDS ORDERED: ROCURONIUM 50 MG/5 ML VIAL ONE ×2 (22:54→23:50)
[2023-05-18] MEDS ORDERED: LACTATED RINGERS 1,000 ML IV SCH (23:00)
[2023-05-18] MEDS ORDERED: BUPIVACAINE 0.25% PF 30 ML VIAL ONE (23:00)
[2023-05-18] MEDS ORDERED: BUPIVACAINE 0.25% PF 30 ML VIAL SUBQ ONE (23:29)
[2023-05-18] MEDS ORDERED: ACETAMINOPHEN 1,000 MG/100 ML 1,000 MG/100 ML BAG IV ONE (23:43)
[2023-05-19] MEDS ORDERED: PROPOFOL 500 MG/50 ML 500 MG/50 ML VIAL ONE (00:19)
[2023-05-19] MEDS ORDERED: METHYLENE BLUE 0.5% 50 MG/10 ML AMPULE ONE (00:50)
[2023-05-19] MEDS ORDERED: HYDROmorphone 1 MG/ML CARPUJECT ONE ×3 (01:17→03:30)
[2023-05-19] MEDS ORDERED: SUGAMMADEX 200 MG/2 ML VIAL IVP ONE ×2 (01:22→01:38)
[2023-05-19] MEDS ORDERED: ONDANSETRON ODT 4 MG TABLET TL PRN ×2 (01:52→07:57)
[2023-05-19] MEDS ORDERED: SCOPOLAMINE PATCH TOP PRN ×2 (01:52→08:11)
[2023-05-19] MEDS ORDERED: oxyCODONE 5 MG TABLET PO PRN (01:52)
[2023-05-19] MEDS ORDERED: HYDROmorphone 1 MG/ML CARPUJECT IVP PRN ×2 (01:52→08:06)
[2023-05-19] MEDS ORDERED: SIMETHICONE CHEW 80 MG TABLET PO PRN ×2 (01:52→08:13)
--- NOTE | 2023-05-19 01:59 | OPERATIVE REPORT ---
Operative Report - General Procedure Date: 05/19/23 Planned Procedure: Diagnostic laparoscopy, possible laparatomy, right ovarian cystectomy, possible ooporectomy, possible salpingectomy Pre-Op Diagnosis: 1. acute pelvic pain 2. ovarian cyst 3. ovarian torsion Procedure Performed: Diagnostic laparoscopy converted to laparotomy, right salpingo-oophorectomy, lysis of adhesions, cystoscopy Post Op Diagnosis: right sided endometrioma, right simple ovarian cyst, extensive adhesions - Procedure Note Primary Surgeon: Debora COLEMAN Anesthesia Technique: General ET tube Pathology: 1. Pelvic washings 2. Right ovary with endometrioma and simple cyst 3. Right fallopian tube Estimated Blood Loss (mL): 25 Indications: Patient is a 42-year-old G2, P2 who presented with acute onset of lower pelvic pain.CT scan and ultrasound were significant for a large right-sided adnexal mass. Physical exam was concerning for ovarian torsion. Patient was requiring narcotic pain medication In the emergency department.Risk, benefits, and alternatives for surgical management were discussed with patient and all questions were answered. Informed consent was obtained. Findings: 1. Right ovarian endometrioma 2. Right ovarian simple cyst 3. Dense pelvic adhesion 4. Inflammed right fallopian tube - Other Other Information/Narrative: The patient was taken to the operating room where confirmation of patient and procedure was obtained, general anesthesia was obtained without difficulty. She was placed in the dorsal lithotomy position and prepared and draped in the normal sterile fashion. A krause catheter and uterine manipulator were placed. Sterile gloves were then changed and attention was turned to the abdomen. 3 ml of 0.25% marcaine was injected and a 5mm incision was made with the scalpel. The veress needle was then carefully introduced into the peritoneal cavity at a 45 degree angle while tenting the abdominal wall. Intraperitoneal placement was confirmed by use of a water filled syringe and an opening intr aabdominal pressure of 2 mm HG. The abdomen was then insufflated with CO2 gas. The veress needle was removed and a 5mm bladed trocar was then inserted without difficulty into the abdomen. Intraperitoneal placement was confirmed with the laparoscope. A brief scan of the abdominal cavity revealed no injuries with entry into the abdomen. Inspection of the pelvis was significant for a large right sided adnexal mass adherent to the right pelvic side wall and the uterus. Decision was made at this time to convert to laparotomy. Intra-abdominal pressure was decreased and the trochar was removed under direct visualization.The uterine manipulator was also removed. Sterile gloves were changed. The patient received 2 g of Ancef prior to skin incision. A Pfannenstiel incision was made with a scalpel and was carried down to the underlying fascia with Bovie cauterization.The fascia was incised with the Bovie and was extended bilaterally with use of Richards scissors.The rectus muscles were and the peritoneum was bluntly entered.The peritoneal incision was extended.An Joseph retractor was then placed in the abdomen. Pelvic washings were obtained and sent to pathology for cytology. The left ovary and fallopian tube was visualized and found to be normal.The uterus contained a large fibroid in the posterior aspect.There were dense adhesions between the right ovary and right pelvic sidewall. The bowel was gently moved out of the pelvis and was packed with moist laps. Prior to oophorectomy, adhesions were divided to restore anatomic relationships. Right ovarian cyst was grasped with Allis clamp. A small incision was made with Bovie cautery and endometrioma was drained with suction catheter with no spillage into the abdominal cavity. A simple cyst was then identified which was similarly incised with Bovie cautery and drained with suction catheter with no spillage into the abdominal cavity. A tissue plane was then developed between the capsule and the cyst wall using Metzenbaum scissors. The right fallopian tube was edematous, enlarged, and inflamed. Decision was made to proceed with a right salpingo-oophorectomy. The right ureter was identified by palpation at the pelvic brim.There was difficulty visualizing the ureter secondary to scar tissue.The hand-held LigaSure was then used to fulgurate divide the infundibulopelvic ligament. The mesosalpinx was fulgurated and divided to the level of the uterine cornua.The fallopian tube and utero-ovarian ligament were then transected. The pedicles were noted to be hemostatic. Additional [id number] sutures of 3-0 vicryl where used on the uterine serosa for hemostasis. Due to inability to directly visualize the right ureter the decision was made to proceed with cystoscopy. Krause catheter was removed. Cystoscopy was performed with a 30 degree scope with normal findings and bilateral ureteral jets. Sterile gloves were then changed and attention was turned to the abdomen. Inspection of the pelvis revealed excellent hemostasis. All instruments and sponges were removed from the abdomen. The fascia was closed with 0 Vicryl in a running fashion. The subcutaneous tissue was closed with 2-0 Vicryl. Skin was closed with 3-0 Monocryl. The 5 mm trocar site and the umbilicus was closed with 4-0 Monocryl. The patient tolerated procedure well. All sponge, needle, and instrument counts were correct x2 at the end of the case.
[2023-05-19] MEDS ORDERED: ACETAMINOPHEN 500 MG TABLET PO SCH (02:00)
[2023-05-19] MEDS ORDERED: DOCUSATE SODIUM 100 MG CAPSULE PO SCH ×2 (02:00→09:00)
[2023-05-19] MEDS ORDERED: LACTATED RINGERS 1,000 ML IV SCH ×2 (02:00→03:00)
[2023-05-19] MEDS ORDERED: KETOROLAC 30 MG/ML VIAL IVP SCH (02:00)
[2023-05-19] MEDS ORDERED: fentaNYL 100 MCG/2 ML VIAL IVP PRN (02:24)
[2023-05-19] MEDS ORDERED: HYDROmorphone 0.5 MG/0.5 ML SYRINGE IVP PRN (02:24)
[2023-05-19] MEDS ORDERED: NALOXONE 0.4 MG/ML VIAL IVP PRN (02:24)
[2023-05-19] MEDS ORDERED: ePHEDrine 50 MG/ML VIAL IVP PRN (02:24)
[2023-05-19] MEDS ORDERED: ATROPINE ABBOJECT 1 MG/10 ML SYRINGE IVP PRN (02:24)
[2023-05-19] MEDS ORDERED: ONDANSETRON 4 MG/2 ML VIAL IVP PRN (02:24)
[2023-05-19] MEDS: HYDROmorphone 0.5 MG/0.5 ML SYRINGE IVP PRN ×2 (02:28→02:54)
[2023-05-19 05:57] LABS: BASOPHILS % (AUTO) 0.3 %; HCT - HEMATOCRIT 35.2 % (37.0-47.0); HGB - HEMOGLOBIN 11.7 g/dL (12.0-16.0); LYMPHOCYTES # (AUTO) 0.6 10^3/uL (1.5-3.5); LYMPHOCYTES % (AUTO) 4.2 %; MEAN CORPUSCULAR HEMOGLOBIN 30.9 pg (27.0-31.0); MEAN CORPUSCULAR HGB CONC 33.2 g/dL (32.0-36.0); MEAN CORPUSCULAR VOLUME 92.9 fL (81.0-99.0); MEAN PLATELET VOLUME 9.7 fL (7.9-10.8); MONOCYTES # (AUTO) 0.8 10^3/uL (0.0-1.0); MONOCYTES % (AUTO) 5.1 %; NEUTROPHILS # (AUTO) 13.3 10^3/uL (1.5-6.6); NEUTROPHILS % (AUTO) 89.9 %; PLT - PLATELET COUNT 231 10^3/uL (130-450); RED BLOOD COUNT 3.79 10^6/uL (4.20-5.40); RED CELL DISTRIBUTION WIDTH 12.8 % (12.0-15.0); WHITE BLOOD COUNT 14.8 x10^3/uL (4.8-10.8)
[2023-05-19] MEDS: ACETAMINOPHEN 500 MG TABLET PO SCH ×3 (06:01→21:55)
[2023-05-19] MEDS: DOCUSATE SODIUM 100 MG CAPSULE PO SCH ×2 (08:00→20:50)
[2023-05-19] MEDS: KETOROLAC 30 MG/ML VIAL IVP SCH ×3 (08:00→19:59)
--- NOTE | 2023-05-19 11:02 | PROVIDER PROGRESS NOTE ---
Subjective - Prog Note Date Prog Note Date: 05/19/23 Prog Note Time: 10:59 - Subjective Subjective: Patient is postoperative day 1 status post laparotomy with right salpingo- oophorectomy, removal of endometrioma and simple right ovarian cyst, and cystectomy. Patient is having a significant amount of pain this morning. She is also experiencing nausea and vomiting. Objective - Vital Signs/Intake & Output Reviewed Vital Signs: Yes Vital Signs: Vital Signs x48h Temp Pulse Resp BP Pulse Ox 05/19/23 08:31 97.3 F L 49 L 16 93/52 L 99 05/19/23 06:00 97.9 F 59 L 16 95/47 L 97 05/19/23 05:00 53 L 16 86/52 L 96 05/19/23 04:00 55 L 16 86/46 L 92 05/19/23 03:30 58 L 16 100/57 L 97 05/19/23 03:05 97.7 F 51 L 16 98/59 L 95 Intake & Output: Intake & Output 05/16/23 05/17/23 05/18/23 05/19/23 23:59 23:59 23:59 23:59 Intake Total 1125 300 Output Total 150 Balance 1125 150 - Objective General Appearance: positive: No acute distress Respiratory: positive: Breath sounds nml Cardiovascular: positive: Regular rate & rhythm Abdomen: positive: Tenderness (non-distended, dressing in place. Appropriately tender to palpation.) Extremities: positive: Non-tender - Lab Results Fish Bones: 05/19/23 05:30 05/18/23 16:49 Other Labs: Lab Results x24hrs 05/19/23 05/18/23 05/18/23 Range/Units 05:30 19:22 16:49 WBC 14.8 H (4.8-10.8) x10^3/uL RBC 3.79 L (4.20-5.40) 10^6/uL Hgb 11.7 L (12.0-16.0) g/dL Hct 35.2 L (37.0-47.0) % MCV 92.9 (81.0-99.0) fL MCH 30.9 (27.0-31.0) pg MCHC 33.2 (32.0-36.0) g/dL RDW 12.8 (12.0-15.0) % Plt Count 231 (130-450) 10^3/uL MPV 9.7 (7.9-10.8) fL Neut # (Auto) 13.3 H (1.5-6.6) 10^3/uL Lymph # (Auto) 0.6 L (1.5-3.5) 10^3/uL Alpine # (Auto) 0.8 (0.0-1.0) 10^3/uL Eos # (Auto) 0.0 (0.0-0.7) 10^3/uL Baso # (Auto) 0.0 (0.0-0.1) 10^3/uL Absolute Nucleated RBC 0.00 x10^3/uL Nucleated RBC % 0.0 /100WBC Sodium (135-145) mmol/L Potassium (3.5-4.5) mmol/L Chloride (101-111) mmol/L Carbon Dioxide (21-32) mmol/L Anion Gap (6-13) BUN (6-20) mg/dL Creatinine (0.6-1.3) mg/dL Estimated GFR (MDRD) (>89) Glucose (74-104) mg/dL Calcium (8.5-10.3) mg/dL Total Bilirubin (0.2-1.0) mg/dL AST (10-42) IU/L ALT (10-60) IU/L Alkaline Phosphatase (42-121) IU/L Total Protein (6.4-8.9) g/dL Albumin (3.2-5.5) g/dL Globulin (2.1-4.2) g/dL Albumin/Globulin Ratio (1.0-2.2) Lipase (11-82) U/L Serum HCG, Qual NEGATIVE Urine Color YELLOW Urine Clarity CLEAR (CLEAR) Urine pH 5.0 (5.0-7.5) PH Ur Specific Watts 1.015 (1.002-1.030) Urine Protein NEGATIVE (NEGATIVE) mg/dL Urine Glucose (UA) NEGATIVE (NEGATIVE) mg/dL Urine Ketones NEGATIVE (NEGATIVE) mg/dL Urine Occult Blood SMALL H (NEGATIVE) Urine Nitrite NEGATIVE (NEGATIVE) Urine Bilirubin NEGATIVE (NEGATIVE) Urine Urobilinogen 0.2 (NORMAL) (NORMAL) E.U./dL Ur Leukocyte Esterase NEGATIVE (NEGATIVE) Urine RBC 0-5 (0-5) /HPF Urine WBC 0-3 (0-5) /HPF Ur Squamous Epith Cells RARE Squamous (<= Few) Urine Bacteria None Seen (None Seen) /HPF Ur Microscopic Review INDICATED Urine Culture Comments NOT INDICATED 05/18/23 05/18/23 Range/Units 16:49 16:49 WBC 17.6 H (4.8-10.8) x10^3/uL RBC 4.30 (4.20-5.40) 10^6/uL Hgb 13.1 (12.0-16.0) g/dL Hct 39.3 (37.0-47.0) % MCV 91.4 (81.0-99.0) fL MCH 30.5 (27.0-31.0) pg MCHC 33.3 (32.0-36.0) g/dL RDW 12.4 (12.0-15.0) % Plt Count 288 (130-450) 10^3/uL MPV 9.2 (7.9-10.8) fL Neut # (Auto) 15.6 H (1.5-6.6) 10^3/uL Lymph # (Auto) 0.8 L (1.5-3.5) 10^3/uL Alpine # (Auto) 0.9 (0.0-1.0) 10^3/uL Eos # (Auto) 0.0 (0.0-0.7) 10^3/uL Baso # (Auto) 0.1 (0.0-0.1) 10^3/uL Absolute Nucleated RBC 0.00 x10^3/uL Nucleated RBC % 0.0 /100WBC Sodium 136 (135-145) mmol/L Potassium 4.2 (3.5-4.5) mmol/L Chloride 106 (101-111) mmol/L Carbon Dioxide 27 (21-32) mmol/L Anion Gap 3.0 L (6-13) BUN 13 (6-20) mg/dL Creatinine 0.8 (0.6-1.3) mg/dL Estimated GFR (MDRD) 78 L (>89) Glucose 115 H (74-104) mg/dL Calcium 9.3 (8.5-10.3) mg/dL Total Bilirubin 0.4 (0.2-1.0) mg/dL AST 13 (10-42) IU/L ALT 12 (10-60) IU/L Alkaline Phosphatase 75 (42-121) IU/L Total Protein 7.0 (6.4-8.9) g/dL Albumin 4.1 (3.2-5.5) g/dL Globulin 2.9 (2.1-4.2) g/dL Albumin/Globulin Ratio 1.4 (1.0-2.2) Lipase 16 (11-82) U/L Serum HCG, Qual Urine Color Urine Clarity (CLEAR) Urine pH (5.0-7.5) PH Ur Specific Watts (1.002-1.030) Urine Protein (NEGATIVE) mg/dL Urine Glucose (UA) (NEGATIVE) mg/dL Urine Ketones (NEGATIVE) mg/dL Urine Occult Blood (NEGATIVE) Urine Nitrite (NEGATIVE) Urine Bilirubin (NEGATIVE) Urine Urobilinogen (NORMAL) E.U./dL Ur Leukocyte Esterase (NEGATIVE) Urine RBC (0-5) /HPF Urine WBC (0-5) /HPF Ur Squamous Epith Cells (<= Few) Urine Bacteria (None Seen) /HPF Ur Microscopic Review Urine Culture Comments Assessment/Plan - Problem List (2) RLQ abdominal pain Impression: 1. POD#1 -slowly advance diet as tolerated -goal for today will be to ambulate when able and to adequately manage pain -will leave krause in place until able to ambulate Discussed plan of care with patient and partner. Reviewed OR findings and surgery. All questions answered.
[2023-05-19] MEDS: PROCHLORPERAZINE 10 MG/2 ML VIAL IVP PRN ×2 (11:30→21:56)
--- NOTE | 2023-05-19 12:03 | ANESTHESIA POST OP EVALUATION ---
Anesthesia Post Eval - Post Anesthesia Eval Vitals: Last Vital Signs Temp 36.3 C L 05/19/23 08:31 Pulse 49 L 05/19/23 08:31 Resp 16 05/19/23 08:31 BP 93/52 L 05/19/23 08:31 Pulse Ox 99 05/19/23 08:31 O2 Flow Rate CV Function Including HR & BP: Stable Pain Control: Satisfactory Nausea & Vomiting: Negative Mental Status: Baseline Respiratory Status: Airway Patent Hydration Status: Satisfactory Anesthesia Complications: None
[2023-05-19] MEDS: oxyCODONE 5 MG TABLET PO PRN ×3 (12:19→20:50)
[2023-05-19] MEDS: LACTATED RINGERS 1,000 ML IV SCH ×2 (12:21→19:49)
--- NOTE | 2023-05-19 12:50 | PHARMACY PROGRESS NOTE ---
- Best Possible Medication History Admit Date and Time: 05/19/23 0238 Processed by: Pharmacy Medication History completed: Yes Patient Interview: Completed Secondary Source(s): Spouse/Significant other As the person ultimately responsible for medication therapy, providers are able to order a medication from an existing home medication list in [facility] via the "Reconcile Routine" prior to Confirmation of that medication by production support developer. Such practice is discouraged except when the physician, in their clinical judgment, deems that a medical need exists for a medication without regard to previous use.
--- NOTE | 2023-05-19 16:07 | PROVIDER PROGRESS NOTE ---
Subjective - Prog Note Date Prog Note Date: 05/19/23 - Subjective Subjective: Patient is sleeping- per partner her pain is better controlled and she was able to tolerate liquids today. Objective - Vital Signs/Intake & Output Vital Signs: Vital Signs x48h Temp Pulse Resp BP Pulse Ox 05/19/23 12:00 98.4 F 50 L 16 91/46 L 98 05/19/23 08:31 97.3 F L 49 L 16 93/52 L 99 Intake & Output: Intake & Output 05/16/23 05/17/23 05/18/23 05/19/23 23:59 23:59 23:59 23:59 Intake Total 1125 300 Output Total 750 Balance 1125 -450 - Lab Results Fish Bones: 05/19/23 05:30 05/18/23 16:49 Other Labs: Lab Results x24hrs 05/19/23 05/18/23 05/18/23 Range/Units 05:30 19:22 16:49 WBC 14.8 H (4.8-10.8) x10^3/uL RBC 3.79 L (4.20-5.40) 10^6/uL Hgb 11.7 L (12.0-16.0) g/dL Hct 35.2 L (37.0-47.0) % MCV 92.9 (81.0-99.0) fL MCH 30.9 (27.0-31.0) pg MCHC 33.2 (32.0-36.0) g/dL RDW 12.8 (12.0-15.0) % Plt Count 231 (130-450) 10^3/uL MPV 9.7 (7.9-10.8) fL Neut # (Auto) 13.3 H (1.5-6.6) 10^3/uL Lymph # (Auto) 0.6 L (1.5-3.5) 10^3/uL Lucas # (Auto) 0.8 (0.0-1.0) 10^3/uL Eos # (Auto) 0.0 (0.0-0.7) 10^3/uL Baso # (Auto) 0.0 (0.0-0.1) 10^3/uL Absolute Nucleated RBC 0.00 x10^3/uL Nucleated RBC % 0.0 /100WBC Sodium (135-145) mmol/L Potassium (3.5-4.5) mmol/L Chloride (101-111) mmol/L Carbon Dioxide (21-32) mmol/L Anion Gap (6-13) BUN (6-20) mg/dL Creatinine (0.6-1.3) mg/dL Estimated GFR (MDRD) (>89) Glucose (74-104) mg/dL Calcium (8.5-10.3) mg/dL Total Bilirubin (0.2-1.0) mg/dL AST (10-42) IU/L ALT (10-60) IU/L Alkaline Phosphatase (42-121) IU/L Total Protein (6.4-8.9) g/dL Albumin (3.2-5.5) g/dL Globulin (2.1-4.2) g/dL Albumin/Globulin Ratio (1.0-2.2) Lipase (11-82) U/L Serum HCG, Qual NEGATIVE Urine Color YELLOW Urine Clarity CLEAR (CLEAR) Urine pH 5.0 (5.0-7.5) PH Ur Specific [place] 1.015 (1.002-1.030) Urine Protein NEGATIVE (NEGATIVE) mg/dL Urine Glucose (UA) NEGATIVE (NEGATIVE) mg/dL Urine Ketones NEGATIVE (NEGATIVE) mg/dL Urine Occult Blood SMALL H (NEGATIVE) Urine Nitrite NEGATIVE (NEGATIVE) Urine Bilirubin NEGATIVE (NEGATIVE) Urine Urobilinogen 0.2 (NORMAL) (NORMAL) E.U./dL Ur Leukocyte Esterase NEGATIVE (NEGATIVE) Urine RBC 0-5 (0-5) /HPF Urine WBC 0-3 (0-5) /HPF Ur Squamous Epith Cells RARE Squamous (<= Few) Urine Bacteria None Seen (None Seen) /HPF Ur Microscopic Review INDICATED Urine Culture Comments NOT INDICATED 05/18/23 05/18/23 Range/Units 16:49 16:49 WBC 17.6 H (4.8-10.8) x10^3/uL RBC 4.30 (4.20-5.40) 10^6/uL Hgb 13.1 (12.0-16.0) g/dL Hct 39.3 (37.0-47.0) % MCV 91.4 (81.0-99.0) fL MCH 30.5 (27.0-31.0) pg MCHC 33.3 (32.0-36.0) g/dL RDW 12.4 (12.0-15.0) % Plt Count 288 (130-450) 10^3/uL MPV 9.2 (7.9-10.8) fL Neut # (Auto) 15.6 H (1.5-6.6) 10^3/uL Lymph # (Auto) 0.8 L (1.5-3.5) 10^3/uL Lucas # (Auto) 0.9 (0.0-1.0) 10^3/uL Eos # (Auto) 0.0 (0.0-0.7) 10^3/uL Baso # (Auto) 0.1 (0.0-0.1) 10^3/uL Absolute Nucleated RBC 0.00 x10^3/uL Nucleated RBC % 0.0 /100WBC Sodium 136 (135-145) mmol/L Potassium 4.2 (3.5-4.5) mmol/L Chloride 106 (101-111) mmol/L Carbon Dioxide 27 (21-32) mmol/L Anion Gap 3.0 L (6-13) BUN 13 (6-20) mg/dL Creatinine 0.8 (0.6-1.3) mg/dL Estimated GFR (MDRD) 78 L (>89) Glucose 115 H (74-104) mg/dL Calcium 9.3 (8.5-10.3) mg/dL Total Bilirubin 0.4 (0.2-1.0) mg/dL AST 13 (10-42) IU/L ALT 12 (10-60) IU/L Alkaline Phosphatase 75 (42-121) IU/L Total Protein 7.0 (6.4-8.9) g/dL Albumin 4.1 (3.2-5.5) g/dL Globulin 2.9 (2.1-4.2) g/dL Albumin/Globulin Ratio 1.4 (1.0-2.2) Lipase 16 (11-82) U/L Serum HCG, Qual Urine Color Urine Clarity (CLEAR) Urine pH (5.0-7.5) PH Ur Specific [place] (1.002-1.030) Urine Protein (NEGATIVE) mg/dL Urine Glucose (UA) (NEGATIVE) mg/dL Urine Ketones (NEGATIVE) mg/dL Urine Occult Blood (NEGATIVE) Urine Nitrite (NEGATIVE) Urine Bilirubin (NEGATIVE) Urine Urobilinogen (NORMAL) E.U./dL Ur Leukocyte Esterase (NEGATIVE) Urine RBC (0-5) /HPF Urine WBC (0-5) /HPF Ur Squamous Epith Cells (<= Few) Urine Bacteria (None Seen) /HPF Ur Microscopic Review Urine Culture Comments Assessment/Plan - Problem List (2) RLQ abdominal pain Impression: s/p laparotomy with right salpingo-oophorectomy and cystoscopy -patient's nausea is better controlled with compazine, she has tolerated jello and liquids today -pain is better controlled, patient is currently sleeping -will leave krause in place until ambulating
--- NOTE | 2023-05-19 19:17 | PROVIDER PROGRESS NOTE ---
Subjective - Prog Note Date Prog Note Date: 05/19/23 Prog Note Time: 19:16 - Subjective Subjective: Patient feels much better this afternoon. She is tolerating p.o. Patient has been ambulating out of bed.Pain is well controlled. And nausea has resolved. Objective - Vital Signs/Intake & Output Vital Signs: Vital Signs x48h Temp Pulse Resp BP Pulse Ox 05/19/23 16:00 98.4 F 66 16 94/51 L 100 05/19/23 12:00 98.4 F 50 L 16 91/46 L 98 Intake & Output: Intake & Output 05/16/23 05/17/23 05/18/23 05/19/23 23:59 23:59 23:59 23:59 Intake Total 1125 300 Output Total 1000 Balance 1125 -700 - Lab Results Fish Bones: 05/19/23 05:30 05/18/23 16:49 Other Labs: Lab Results x24hrs 05/19/23 05/18/23 Range/Units 05:30 19:22 WBC 14.8 H (4.8-10.8) x10^3/uL RBC 3.79 L (4.20-5.40) 10^6/uL Hgb 11.7 L (12.0-16.0) g/dL Hct 35.2 L (37.0-47.0) % MCV 92.9 (81.0-99.0) fL MCH 30.9 (27.0-31.0) pg MCHC 33.2 (32.0-36.0) g/dL RDW 12.8 (12.0-15.0) % Plt Count 231 (130-450) 10^3/uL MPV 9.7 (7.9-10.8) fL Neut # (Auto) 13.3 H (1.5-6.6) 10^3/uL Lymph # (Auto) 0.6 L (1.5-3.5) 10^3/uL Towns # (Auto) 0.8 (0.0-1.0) 10^3/uL Eos # (Auto) 0.0 (0.0-0.7) 10^3/uL Baso # (Auto) 0.0 (0.0-0.1) 10^3/uL Absolute Nucleated RBC 0.00 x10^3/uL Nucleated RBC % 0.0 /100WBC Urine Color YELLOW Urine Clarity CLEAR (CLEAR) Urine pH 5.0 (5.0-7.5) PH Ur Specific [place] 1.015 (1.002-1.030) Urine Protein NEGATIVE (NEGATIVE) mg/dL Urine Glucose (UA) NEGATIVE (NEGATIVE) mg/dL Urine Ketones NEGATIVE (NEGATIVE) mg/dL Urine Occult Blood SMALL H (NEGATIVE) Urine Nitrite NEGATIVE (NEGATIVE) Urine Bilirubin NEGATIVE (NEGATIVE) Urine Urobilinogen 0.2 (NORMAL) (NORMAL) E.U./dL Ur Leukocyte Esterase NEGATIVE (NEGATIVE) Urine RBC 0-5 (0-5) /HPF Urine WBC 0-3 (0-5) /HPF Ur Squamous Epith Cells RARE Squamous (<= Few) Urine Bacteria None Seen (None Seen) /HPF Ur Microscopic Review INDICATED Urine Culture Comments NOT INDICATED Assessment/Plan - Problem List (2) RLQ abdominal pain Impression: POD#0 s/p laparatomy with right salpingo-oophorectomy and cystoscopy Pain well controlled Lim catheter out in morning.
[2023-05-20] MEDS: KETOROLAC 30 MG/ML VIAL IVP SCH (01:15)
[2023-05-20] MEDS: oxyCODONE 5 MG TABLET PO PRN ×4 (01:16→14:17)
[2023-05-20] MEDS ORDERED: SODIUM CHLORIDE FLUSH 0.9% 10 ML SYRINGE IVP ONE (01:17)
[2023-05-20] MEDS: LACTATED RINGERS 1,000 ML IV SCH (05:28)
[2023-05-20] MEDS: ACETAMINOPHEN 500 MG TABLET PO SCH ×2 (06:16→14:14)
--- NOTE | 2023-05-20 08:04 | PROVIDER PROGRESS NOTE ---
Subjective - Prog Note Date Prog Note Date: 05/20/23 Prog Note Time: 08:01 - Subjective Pt reports feeling: Improved Subjective: Patient is postoperative day 1 status post laparotomy with right salpingo- oophorectomy, lysis of adhesions, and cystoscopy. Patient is doing well this morning. She is ambulating. Progressing regular diet. Passing flatus. Lim will be discontinued this morning. Pain has been well controlled overnight. Objective - Vital Signs/Intake & Output Reviewed Vital Signs: Yes Vital Signs: Vital Signs x48h Temp Pulse Resp BP Pulse Ox 05/20/23 04:00 98.2 F 51 L 18 84/46 L 97 05/20/23 00:30 98.4 F 73 16 86/50 L 96 Intake & Output: Intake & Output 05/17/23 05/18/23 05/19/23 05/20/23 23:59 23:59 23:59 23:59 Intake Total 1125 300 Output Total 1250 650 Balance 1125 950 -650 - Objective General Appearance: positive: No acute distress Respiratory: positive: Breath sounds nml Cardiovascular: positive: Regular rate & rhythm Abdomen: positive: Non-tender (appropriately tender to palpation. Non-distended. Dressing in place) Extremities: positive: Non-tender, No pedal edema Neurologic/Psychiatric: positive: Oriented x3 - Lab Results Fish Bones: 05/19/23 05:30 05/18/23 16:49 Assessment/Plan - Problem List (2) RLQ abdominal pain Impression: Patient has been progressing well postoperatively. -Discontinue Lim this morning -Advance diet as tolerated -Discontinue IV -Patient is on p.o. pain medication
[2023-05-20] MEDS: DOCUSATE SODIUM 100 MG CAPSULE PO SCH (08:50)
[2023-05-20 11:29] VITALS: BP 91/48
--- NOTE | 2023-05-20 13:09 | Discharge Plan ---
Discharge Plan Problem Reviewed?: Yes Disposition: Home, Self Care Condition: Good Diet: Regular Activity Restrictions: Activity as Tolerated Shower Restrictions: No Driving Restrictions: Yes (No driving with narcotics) Weight Bearing: Full Weight Instruction Topics: Unilateral Salpingo Oophorectomy No Smoking: If you smoke, Please STOP! Call for help. Follow-up with: Fariba Burgess DO [Provider Admit Priv/Credential] -
--- NOTE | 2023-05-20 22:14 | DISCHARGE SUMMARY ---
Discharge Summary Admit Date: 05/18/23 Discharge Date: 05/20/23 Discharging Provider: Fariba Burgess DO Code Status: Attempt Resuscitation Condition at Discharge: Good Discharge Disposition: 01 Home, Self Care Discharge Facility Name: [facility] - DIAGNOSES Admission Diagnoses: Right side adnexal mass Acute pelvic pain - HPI History of Present Illness: 42yo female admitted for surgical treatment 05/18 for acute pelvic pain and right adnexal mass. - HOSPITAL COURSE Hospital Course: 42yo female admitted 05/18/23 for acute pelvic pain and right side adnexal mass. Decision made for diagnostic laparoscopy. This was coverted to laparotomy, RSO, lysis of adhesions, cystoscopy. See operative report for details. Pain not controlled initially. She then improved and pain controlled. Ambulating, voiding, tolerating regular diet by POD#1. She is comfortable this am and feels ready to go home. Postoperative care reviewed. She should follow up 1w. - ALLERGIES Allergies/Adverse Reactions: Allergies Allergy/AdvReac Type Severity Reaction Status Date / Time No Known Drug Allergies Allergy Verified 05/18/23 15:54 - MEDICATIONS Home Medications: Ambulatory Orders Medication Instructions Recorded Confirmed Multivit-Min/Iron/Folic Acid/K 1 tab PO DAILY 05/19/23 05/19/23 [Multi-Day Plus Minerals Tablet] - PHYSICAL EXAM AT DISCHARGE General Appearance: positive: No acute distress Eyes Bilateral: positive: EOMI Respiratory: positive: No respiratory distress Abdomen: positive: Other (Dressing in place. Clean and dry. ) Skin: positive: Color nml Extremities: positive: Non-tender Neurologic/Psychiatric: positive: Oriented x3 - LABS Result Diagrams: 05/19/23 05:30 05/18/23 16:49 - DIAGNOSTIC IMAGING Diagnostic Imaging Results: Final report reviewed - QUALITY (Female Hip Fx Only) Was patient sent home on osteoporosis medication?: No - FOLLOW UP Follow Up: 1w - TIME SPENT Time Spent in Discharge (Minutes): 25
== END 2023-05-20 14:45 | disposition home or self-care (01) | DRG 742 ==
LOC: ED 15:43 → SDS 22:09 → MS2 05-19 02:38
PROVIDERS: ADMIT Obstetrics & Gynecology Obstetrics; ATTEND Obstetrics & Gynecology Obstetrics
PROC: 0UT50ZZ Resection of Right Fallopian Tube, Open Approach (ICD-10-PCS; principal; 2023-05-19)
PROC: 0UT00ZZ Resection of Right Ovary, Open Approach (ICD-10-PCS; 2023-05-19)
DX: N83.511 Torsion of right ovary and ovarian pedicle (principal); K50.90 Crohn's disease, unspecified, without complications; N83.291 Other ovarian cyst, right side; D72.829 Elevated white blood cell count, unspecified; N80.121 Deep endometriosis of right ovary; N73.6 Female pelvic peritoneal adhesions (postinfective); D25.9 Leiomyoma of uterus, unspecified; N70.91 Salpingitis, unspecified; R11.0 Nausea; Z53.31 Laparoscopic surgical procedure converted to open procedure
CPT/HCPCS: 36415; 74177; 76830; 76856; 80053; 81001; 83690; 84703; 85025; 93975; 96374; 96375; 96376; 99285; A9270; J0131; J0330; J1170; J7120; Q0162; Q9967; 81003; 81025; 87086